=== PATIENT | male | born 1945 ===

== ENCOUNTER 2019-02-05 06:23 | Inpatient (IN) ==
[2019-02-05] MEDS ORDERED: NiCARdipine 2.5 MG/10 ML Syringe IVPB ONE (06:39)
[2019-02-05] MEDS ORDERED: Lidocaine -MPF 2% 2 ML VIAL ONE ×2 (06:49→09:32)
[2019-02-05] MEDS ORDERED: Ondansetron 4 MG/2 ML VIAL ONE (06:49)
[2019-02-05] MEDS ORDERED: *HR* Succinylcholine 200 MG/10 ML VIAL IVP ONE (06:49)
[2019-02-05] MEDS ORDERED: Dexamethasone 4 MG/ML VIAL ONE (06:49)
[2019-02-05] MEDS ORDERED: *HR* Rocuronium Bromide 50 MG/5 ML VIAL ONE (06:49)
[2019-02-05] MEDS ORDERED: Propofol 500 MG/50 ML INFUS..BTL ONE (06:51)
[2019-02-05] MEDS ORDERED: *HR* Propofol 200 MG/20 ML VIAL IVP ONE (06:52)
[2019-02-05] MEDS ORDERED: *HR* Heparin 5,000 UNIT/ML VIAL ONE ×2 (06:54→08:31)
[2019-02-05] MEDS ORDERED: *HR* FentaNYL (PF) 100 MCG/2 ML VIAL ONE ×3 (06:57→10:39)
[2019-02-05] MEDS ORDERED: *HR* Midazolam HCl 2 MG/2 ML VIAL ONE (06:57)
[2019-02-05] MEDS ORDERED: Albuterol 2.5 MG/3 ML NEBULIZER IH ONE (06:58)
[2019-02-05] MEDS ORDERED: CeFAZolin Syr 2,000MG/20 ML 2,000 MG/20 ML SYRINGE IVPB ONE (06:58)
[2019-02-05] MEDS ORDERED: EPHEDrine 50 MG/ML VIAL ONE (06:59)
[2019-02-05] MEDS ORDERED: Ringers Solution, Lactated 1,000 ML IVC SCH (07:00)
[2019-02-05] MEDS ORDERED: *HR* Phenylephrine 10 MG/ML VIAL ONE (07:01)
[2019-02-05] MEDS ORDERED: Famotidine 20 MG/2 ML VIAL IVP ONE (07:03)
[2019-02-05] MEDS ORDERED: Pregabalin 75 MG CAPSULE PO ONE (07:03)
[2019-02-05] MEDS ORDERED: Acetaminophen IV 1,000 MG/100 ML INFUS..BTL IVPB ONE (07:03)
[2019-02-05] MEDS ORDERED: traMADol 50 MG TABLET PO ONE (07:04)
--- NOTE | 2019-02-05 07:08 | Anesthesia Evaluation PreOp ---
Date of Encounter: 02/05/19 Time of Encounter: 07:00 - Past History Planned Operation: Left Fem Pop Bypass Cardiac History: HTN, Hyperlipidemia, Cardiac Surgery (CABG X4 2007), Other (PVD) Pulmonary History: Smoker, COPD CIVIL CAD DESIGNER History: Other (Cervical Fusion) Other Medical History: GERD Anesthesia History: No Prior Anesthetic Complications Alcohol Use: none Drug use: none Medications and Allergies Ascorbic Acid [Vitamin C] 500 mg PO DAILY 01/11/19 [History] Aspirin [Lo-Dose Aspirin EC] 81 mg PO DAILY 01/11/19 [History] Atorvastatin [Lipitor] 40 mg PO DAILY 01/11/19 [History] Carvedilol [Coreg] 6.25 mg PO BIDWM 01/11/19 [History] Cholecalciferol (D-3) [Vitamin D] 1,000 unit PO DAILY 01/11/19 [History] Cilostazol 50 mg PO BID 01/11/19 [History] Gabapentin [Neurontin] 300 mg PO BID 01/11/19 [History] Hydrocortisone 2.5% CREAM [Cortaid] 1 appl TP BID PRN 01/11/19 [History] Multivitamin [Daily Multiple Vitamin] 1 each PO DAILY 01/11/19 [History] Omeprazole [PriLOSEC] 20 mg PO DAILY 01/11/19 [History] Tamsulosin HCl [Flomax] 0.4 mg PO DAILY 01/11/19 [History] Tramadol HCl [Ultram] 1 - 2 mg PO Q6H PRN 01/11/19 [History] Ubidecarenone [Coq10] 50 mg PO DAILY 01/11/19 [History] Vitamin B Complex [Balanced B-50] 1 each PO DAILY 01/11/19 [History] Allergy/AdvReac Type Severity Reaction Status Date / Time Amoxicillin Allergy Itching Verified 01/11/19 06:40 vancomycin Allergy Itching Verified 01/11/19 06:40 - Meds/Allergy Pre-op Review Medications Reviewed: Yes Allergies Reviewed: Yes Beta Blockers on Current Med List: Yes (Coreg today 7350) Anesthesia Results - Labs Laboratory Tests 01/09/19 02/01/19 15:43 09:35 Hgb 14.0 Hct 42.9 Plt Count 176 Sodium 137 Potassium 4.0 BUN 22 Creatinine 1.21 - Imaging EKG: report reviewed (SR occ PVC) Anesthesia Exam O2 Sat Height 1.68 m Weight 68.492 kg O2 Sat by Pulse Oximetry 98 Vital Signs Temp Pulse Resp BP Pulse Ox 97.6 F 74 18 134/83 98 02/05/19 06:43 02/05/19 06:43 02/05/19 06:43 02/05/19 06:43 02/05/19 06:43 Height: 5'6 Weight: 150 lbs NPO (# of Hours): MN Pain Scale: 0 - HEENT Pupil (Motor): Pupils equal, EOMI Mallampati: II Oral Opening: Greater than 3 (Limited neck extention) - CIVIL CAD DESIGNER LOC: Oriented CIVIL CAD DESIGNER Motor: Normal RUE, Normal LUE, Normal RLE, Normal LLE, Normal Face CIVIL CAD DESIGNER Sensory: Normal: RUE, LUE, RLE, LLE, Face - Cardiac Rhythm: Regular Murmur: None JVD: No Carotid Bruit: No - Pulmonary Breath Sounds: bilateral Clear Respiratory Effort: Symmetrical Anesthesia Assess/Plan ASA Score: 3 (CAD HTN PVD COPD Tobacco) Level of consciousness: Cooperative, Oriented Anesthetic Plan: General Monitoring Plan: Standard Monitors, A-Line Recovery Plan: PACU (Discussed GA, agrees to proceed)
--- NOTE | 2019-02-05 07:12 | History & Physical Report ---
Date of Encounter: 02/05/19 Time of Encounter: 07:11 24 Hour HP Update - Instructions Instructions: If the History and Physical is less than 30 days old and was completed prior to A.M. admission and or procedure and has NOT been updated on calendar day of procedure please complete this update prior to performing procedure. - Update Patient reports changes in Medical Condition: No Changes in examination, assessment, or condition: No Changes in Medication: No Preop tests/diagnostics Reviewed: Yes Surgery Remains Indicated: Yes Consent for Planned Operative Procedure(s) Verified: Yes - Pre-Operative Checklist Preoperative Checklist Indicated: Yes Prophylactic Antibiotic Ordered: Yes Home Medications Include Beta Noel: Yes Beta Noel Taken Today (Day of Surgery): Yes Beta Noel Taken Yesterday (Day Prior to Surgery): Yes Is VTE Prophylaxis Indicated?: Yes
[2019-02-05] MEDS ORDERED: Heparin 1,000 UNITS/500 mL 1,000 ML ONE (07:15)
[2019-02-05] MEDS ORDERED: ceFAZolin 1,000 MG, Sodium Chloride IRRigation 1,000 ML IR ONE (07:45)
[2019-02-05] MEDS ORDERED: Lidocaine -MPF 4% 5 ML AMPUL ONE (08:06)
[2019-02-05] MEDS ORDERED: Ondansetron 4 MG/2 ML VIAL IVP ONE (08:40)
[2019-02-05] MEDS ORDERED: Morphine Sulfate 2 MG/ML SYRINGE IVP PRN (08:40)
[2019-02-05] MEDS ORDERED: *HR* OxyCODONE Immed Rel 5 MG TABLET PO PRN (08:40)
[2019-02-05] MEDS ORDERED: Dexamethasone 4 MG/ML VIAL IVP ONE (08:40)
[2019-02-05] MEDS ORDERED: *HR* Promethazine 25 MG/ML VIAL IVP PRN (08:40)
--- NOTE | 2019-02-05 08:42 | Anesthesia Procedures ---
Date of Encounter: 02/05/19 Time of Encounter: 07:00 Procedures: Anesthesia - Arterial Line Consent obtained: written consent Time out performed: Yes Sedation: Versed (mg): 2 Supplemental Oxygen via Nasal Cannula (L/min): 2 Local Anesthetic: Lidocaine 1% Size (Gauge): 20 Length (inches): 1 3/4 Technique Used: sterile prep, guide wire technique, direct puncture technique Post-Procedure: line taped into place Patient tolerated procedure: well Complications: none Site: Radial L Vitals: Vital Signs/O2 Sat/Glucose, Most Current Temp Pulse Resp BP Pulse Ox 02/05/19 08:02 64 16 143/72 96 02/05/19 07:20 97.6 F 74 18 134/83 98 02/05/19 06:43 97.6 F 74 18 134/83 98
[2019-02-05 08:50] LABS: ABG Base Excess -5 mEq/L (-2 to 3); ABG Chloride 107 mEq/L (98-107); ABG Glucose 111 mg/dL (60-95); ABG HCO3 19 mEq/L (21-27); ABG Ionized Calcium 1.12 mmol/L (1.15-1.35); ABG Oxygen Saturation 100 % (95-98); ABG PCO2 33 mmHg (35-45); ABG PH 7.37 pH Units (7.32-7.45); ABG PO2 233 mmHg (85-104); ABG TCO2 20 mEq/L (20-26)
[2019-02-05] MEDS ORDERED: Esmolol 100 MG/10 ML VIAL IVP ONE (10:48)
[2019-02-05] MEDS ORDERED: Heparin 1,000 UNITS/500 mL 500 ML ONE (11:57)
[2019-02-05] MEDS ORDERED: Protamine Sulfate 50 MG/5 ML VIAL IVP ONE (12:27)
--- NOTE | 2019-02-05 12:53 | Operative Note ---
Date of procedure: 02/05/19 Pre-op diagnosis: PAD/left leg claudication Post-op diagnosis: same Procedure: left femoral-BK popliteal bypass with 6 mm PTFE Distaflo left iliofemoral/profunda endarterectomy Complications: 0 Anesthesia: GETA Surgeon: Farhan Wynne Was there an doctor assistant present: No Estimated blood loss (cc): 150 Specimen: 0 Condition: stable Disposition: PACU Procedure in Detail: History Francisco Lauren is a 73-year-old white male who is had significant lower extremity symptoms. He is status post previous lower extremity interventions. He now has lifestyle limiting claudication. 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 He now comes to the operating room for correction of the left lower extremity vascular occlusive disease. Procedure After informed consent was obtained the patient was taken the operating room. General endotracheal anesthesia was established under arterial line pressure monitoring. The left lower extremity was then sterilely prepped and draped. A timeout protocol was observed. Dissection was initiated at the femoral level. An incision was made over the groin and dissection was carried down to the femoral artery. The common femoral artery was found to be densely calcified. There was significant calcification at the orifice of the left profunda femoris artery. The left superficial femoral artery was occluded. Dissection was made so that the vessels were controlled. Then a dissection was made of the greater saphenous vein. Unfortunately in the midportion of the thigh the greater saphenous vein was bifurcated and was too small to use and so therefore a synthetic conduit as necessary. Then attention was directed to the [id number] popliteal artery. An incision was made on the medial aspect of the calf. Controls obtained of the [id number]-uus-[id number] popliteal artery which was soft to touch the relatively small diameter. A subsartorial tunnel was then performed. The 6 mm PTFE Distaflo graft was passed through the tunnel. Heparin was given in a dose of 5000 units. After a three-minute delay the sddmm-niv-ubkk popliteal artery was clamped and opened with 11 blade knife and Pennington scissors. Using the fluted end of the graft the end of the graft to side of artery anastomosis was created. A 6-0 Prolene suture was used for this anastomosis. The graft itself was unclamped and the clamps on the [place] vessels were released. Attention was then directed to the left groin. Because of the calcific nature of the disease a formal endarterectomy was necessary. A longitudinal arteriotomy was made for the length of the common femoral artery. An endarterectomy was then performed of the left iliofemoral segment. The superficial femoral artery was occluded and no attempt at endarterectomy was made of this vessel. In addition the orifice of the profunda femoris artery was widely endarterectomized as the result of our large protrusion of the plaque into this region. The synthetic graft was then beveled so that the proximal with serve as a patch over the area of the endarterectomized iliofemoral segment. This was sewn into position using 2 6-0 Prolene sutures. The small space open the area was flushed retrograde and antegrade. The graft was not opened. Pulsatile flow was restored into the left tibial system. Doppler signals were identified over the posterior tibial and dorsalis pedis arteries. The incisions were then irrigated and hemostasis achieved. The wounds were then closed in layers using absorbable suture. Marcaine was infiltrated into the wound edges. Dry sterile dressings were applied. The patient was extubated in the operating room. He was then taken from the operating room to the recovery room in stable condition.
--- NOTE | 2019-02-05 14:03 | Anesthesia Evaluation Post Op ---
Date of Encounter: 02/05/19 Time of Encounter: 14:03 - Vital Signs Vital Signs: Vital Signs/O2 Sat/Glucose, Most Current Temp Pulse Resp BP Pulse Ox 02/05/19 13:54 97.7 F 80 15 122/64 96 02/05/19 13:44 84 11 128/67 97 02/05/19 13:34 80 14 125/86 97 02/05/19 13:24 97.9 F 83 16 131/74 100 - Lungs Lungs: Clear Ascult./Percussion - Airway Airway: Non-obstructed - Cardiovascular Regular Rate - Mental Status Mental Status: Alert & Oriented, Answers Appropriately - Pain Pain Scale: 2 Pain Scale used: Numeric (1 - 10) - Nausea Vomiting Nausea Vomiting: Not Present - Hydration Hydration: Ice chips, Mcallister catheter - Discharge PostOp Status: Transfer Patient to floor
[2019-02-05] MEDS ORDERED: *HR* Labetalol 20 MG/4 ML SYRINGE IVP PRN (14:46)
[2019-02-05] MEDS ORDERED: Naloxone 0.4 MG/ML INJ IVP PRN (14:46)
[2019-02-05] MEDS ORDERED: Ondansetron 4 MG/2 ML VIAL IVP PRN (14:46)
[2019-02-05] MEDS: traMADol 50 MG TABLET PO PRN (18:59)
[2019-02-05] MEDS: Gabapentin 300 MG CAPSULE PO SCH (20:21)
[2019-02-06 05:20] LABS: Basophils % 0.1 %; Hematocrit 33.3 % (37.5-50.1); Hemoglobin 11.4 g/dL (12.9-16.9); Immature Granulocytes % 0.6 % (0-4); Lymphocytes # 1.3 K/mcL (0.6-4.6); Lymphocytes % 8.7 %; Mean Corpuscular HGB Conc 34.2 g/dL (31.6-35.5); Mean Corpuscular Hemoglobin 31.6 pg (28.0-33.3); Mean Corpuscular Volume 92.2 fL (83.0-100.0); Mean Platelet Volume 11.4 fL (9.4-12.4); Monocytes # 0.9 K/mcL (0.0-1.3); Monocytes % 5.7 %; Neutrophils # 12.6 K/mcL (1.6-8.9); Platelet Count 126 K/mcL (140-400); Red Blood Count 3.61 M/mcL (4.19-5.50); Red Cell Distribution Width 13.6 % (11.5-14.5); Segmented Neutrophils % 84.9 %; White Blood Count 14.8 K/mcL (4.3-11.1)
[2019-02-06 05:39] LABS: BUN/Creatinine Ratio 15 (6-26); Blood Urea Nitrogen 17 mg/dL (8-23); Calcium 8.8 mg/dL (8.6-10.3); Carbon Dioxide 24 mEq/L (23-29); Chloride 108 mEq/L (98-107); Glucose 115 mg/dL (70-105); Osmolality,Calculated 290 (280-300); Potassium 3.8 mEq/L (3.5-5.1); Sodium 139 mEq/L (136-145); eGFR For African Americans > 60 (> 60); eGFR For Non-African Americans > 60 (> 60)
[2019-02-06] MEDS: Cholecalciferol (D-3) 1,000 UNIT TABLET PO SCH (08:14)
[2019-02-06] MEDS: Multivit/Ca/Min/Fe/FA 1 TAB TABLET PO SCH (08:14)
[2019-02-06] MEDS: Aspirin Enteric Coated 81 MG Tablet PO SCH (08:14)
[2019-02-06] MEDS: Ascorbic Acid 500 MG TABLET PO SCH (08:14)
[2019-02-06] MEDS: Vitamin B Complex/Vit C/Vit E 1 EACH TABLET PO SCH (08:14)
[2019-02-06] MEDS: Gabapentin 300 MG CAPSULE PO SCH ×2 (08:14→20:44)
[2019-02-06] MEDS ORDERED: (Ubidecarenone [Coq10] 50 MG) PO SCH (09:00)
--- NOTE | 2019-02-06 17:19 | Vascular/[facility] Progress Note ---
Date of Encounter: 02/06/19 Time of Encounter: 17:17 - Assessment and plan (1) PAD (peripheral artery disease) Current Visit: Yes Status: Chronic Patent left lower extremity bypass graft and endarterectomy. Increased and improved perfusion to left foot postoperatively. - Subjective Interval history: Patient is postoperative day #1 following a left femoral to below-knee popliteal artery bypass graft with extensive left iliofemoral endarterectomy. Patient has no specific complaints except for pain associated with his surgical incisions. Patient has been up in the room walking and was evaluated by physical therapy and occupational therapy earlier today. Patient has also been seen by social service in anticipation for transfer to extended care facility for further postoperative rehabilitation. Vital Signs, Last 4 Hours Temp Pulse Resp BP Pulse Ox 02/06/19 16:45 98.4 F 74 18 136/70 96 02/06/19 16:42 98.4 F 74 18 136/70 96 - Physical Examination General: Present: Conversant, No Apparent Distress HEENT: Present: Atraumatic Neck: Absent: JVD Cardiac: Present: Reg Rate and Rhythm Vascular: Present: Color/Temperature (Left foot is warm. Doppler signals are present.), Surgical incisions (Patient has dressings on his left lower extremity incisions. The Dressing was changed earlier today due to oozing but this stopped.) Skin: Present: No rashes noted on visualized skin Results 02/06/19 04:15 02/06/19 04:15 Lab Results, Last 24 hours 02/06/19 02/06/19 04:15 04:15 WBC 14.8 H Hgb 11.4 L Hct 33.3 L Plt Count 126 L Sodium 139 Potassium 3.8 Chloride 108 H Carbon Dioxide 24 BUN 17 Creatinine 1.10 Glucose 115 H Calcium 8.8 Consult Discharge Plan - Plan Referrals: Keke Fernandez CNP [Primary Care Provider] - Farhan Wynne MD [Partnered Physician] - 02/27/19 9:40 am
--- NOTE | 2019-02-06 17:20 | Physician Discharge Referral ---
ExtendedCare Referral Info Transfer To: Extended-care facility Provider in Charge: Dr Wynne Provider in Charge after Transfer: PCP Institutional Level of Care: Skilled - Diagnosis (1) PAD (peripheral artery disease) Priority: Primary Status: Chronic (2) Hypertension Priority: Secondary Status: Chronic (3) Hyperlipidemia Priority: Secondary Status: Chronic (4) Status post aorto-coronary artery bypass graft Priority: Secondary Status: Chronic Expected Duration of Placement: -1-2 weeks Prognosis: Good Aware of Diagnosis: Patient Aware of Prognosis: Patient - Transfer Medications Home Medications: Ascorbic Acid [Vitamin C] 500 mg PO DAILY 01/11/19 [History] Aspirin [Lo-Dose Aspirin EC] 81 mg PO DAILY 01/11/19 [History] Atorvastatin [Lipitor] 40 mg PO HS 01/11/19 [History] Carvedilol [Coreg] 6.25 mg PO BIDWM 01/11/19 [History] Cholecalciferol (D-3) [Vitamin D] 1,000 unit PO DAILY 01/11/19 [History] Cilostazol 50 mg PO BID 01/11/19 [History] Multivitamin [Daily Multiple Vitamin] 1 each PO DAILY 01/11/19 [History] Omeprazole [PriLOSEC] 20 mg PO DAILY 01/11/19 [History] Tamsulosin HCl [Flomax] 0.4 mg PO DAILY 01/11/19 [History] Tramadol HCl [Ultram] 50 mg PO Q6H PRN 01/11/19 [History] Ubidecarenone [Coq10] 50 mg PO DAILY 01/11/19 [History] Vitamin B Complex [Balanced B-50] 1 each PO DAILY 01/11/19 [History] Gabapentin 600 mg PO BID 02/05/19 [History] Allergies/Adverse Reactions: Allergy/AdvReac Type Severity Reaction Status Date / Time vancomycin Allergy See Verified 02/05/19 07:33 Comments Amoxicillin AdvReac Nausea Verified 02/05/19 07:33 - Respiratory Orders Smoking Cessation: Smoking cessation has been advised. For more information, call the [place] Tobacco Quit Line at 2-856-QZDN-NOW. - Ancillary Orders May use pressure relief devices daily prn, May go on DEBBIE w/family/respon democrat w/meds at nurse discretion PRN, May have alcoholic beverages, May consult with Dentist, Photoengraving Retoucher, Garage Supervisor PRN - Advance Directives Code Status: Full Code - Rehabiliation Orders Rehab Orders: ROM Exercises, Evaluation for Physical Therapy, Evaluation for Occupational Therapy - Treatments Skin tear care topically daily PRN per policy - Diet Orders Regular CERTIFICATION: I certify that the transfer of the above named patient to an Extended Care Facility is necessary for the continuing treatment of the diagnosis listed. The above information is true and accurate reflection of patient's current condition. Confidential - Redisclosure prohibited without a patient's written consent.
--- NOTE | 2019-02-06 17:25 | Discharge Summary ---
Orders not resulted at time of discharge: Pending orders 02/01/19 09:42 Red Blood Cells [BBK] Routine Date of Encounter: 02/08/19 Time of Encounter: 10:15 - Discharge Diagnosis (1) PAD (peripheral artery disease) Priority: Primary Status: Chronic (2) Hypertension Priority: Secondary Status: Chronic Qualifiers: Hypertension type: essential hypertension Qualified Code(s): I10 - Essential (primary) hypertension (3) Hyperlipidemia Priority: Secondary Status: Chronic Qualifiers: Hyperlipidemia type: unspecified Qualified Code(s): E78.5 - Hyperlipidemia, unspecified (4) Status post aorto-coronary artery bypass graft Priority: Secondary Status: Chronic - Hospital Course Hospital course: Mr. Lauren is a 73 year old male With known history of severe bilateral lower extremity vascular occlusive disease. The patient was admitted for reconstruction for the left lower extremity. He has known right lower extremity disease as well. He underwent an extensive iliofemoral and profunda femoris artery endarterectomy. Patient also underwent a left femoral to below-knee popliteal artery bypass graft 6 mm PTFE distal flow. The patient had an uneventful postoperative recovery. He was medically cleared for transfer on postoperative day #1. In order to facilitate arrangements the patient was here in the hospital until postoperative day #3. The operation and wound care and other issues were discussed in full with the patient prior to discharge. All questions were answered. The patient will continue his usual medications at the extended care facility and continue those when he is finally discharged back to home. - Time Spent with Patient Total time spent providing and/or coordinating discharge services: - Discharge Medications Prescriptions: No Action Vitamin B Complex [Balanced B-50] 1 each PO DAILY Cholecalciferol (D-3) [Vitamin D] 1,000 unit PO DAILY Ascorbic Acid [Vitamin C] 500 mg PO DAILY Tramadol HCl [Ultram] 50 mg PO Q6H PRN PRN Reason: Pain Omeprazole [PriLOSEC] 20 mg PO DAILY Multivitamin [Daily Multiple Vitamin] 1 each PO DAILY Atorvastatin [Lipitor] 40 mg PO HS Ubidecarenone [Coq10] 50 mg PO DAILY Tamsulosin HCl [Flomax] 0.4 mg PO DAILY Cilostazol 50 mg PO BID Carvedilol [Coreg] 6.25 mg PO BIDWM Aspirin [Lo-Dose Aspirin EC] 81 mg PO DAILY Gabapentin 600 mg PO BID Home Medications: Ascorbic Acid [Vitamin C] 500 mg PO DAILY 01/11/19 [History] Aspirin [Lo-Dose Aspirin EC] 81 mg PO DAILY 01/11/19 [History] Atorvastatin [Lipitor] 40 mg PO HS 01/11/19 [History] Carvedilol [Coreg] 6.25 mg PO BIDWM 01/11/19 [History] Cholecalciferol (D-3) [Vitamin D] 1,000 unit PO DAILY 01/11/19 [History] Cilostazol 50 mg PO BID 01/11/19 [History] Multivitamin [Daily Multiple Vitamin] 1 each PO DAILY 01/11/19 [History] Omeprazole [PriLOSEC] 20 mg PO DAILY 01/11/19 [History] Tamsulosin HCl [Flomax] 0.4 mg PO DAILY 01/11/19 [History] Tramadol HCl [Ultram] 50 mg PO Q6H PRN 01/11/19 [History] Ubidecarenone [Coq10] 50 mg PO DAILY 01/11/19 [History] Vitamin B Complex [Balanced B-50] 1 each PO DAILY 01/11/19 [History] Gabapentin 600 mg PO BID 02/05/19 [History] Allergies/Adverse Reactions: Allergy/AdvReac Type Severity Reaction Status Date / Time vancomycin Allergy See Verified 02/05/19 07:33 Comments Amoxicillin AdvReac Nausea Verified 02/05/19 07:33 Date of admission: 02/05/19 14:26 Primary care physician: Keke Fernandez CNP Consults: 02/05/19 14:46 Consult to Occupational Therapy [CONS] Routine Comment: Evaluate, develop and implement POC Reason for Consult: PAD--s/p left LE bypass--Pt to ECF upon discharge Does patient have active BEDREST order?: No Is patient medically & hemodynamically stable?: Yes Patient assessed for mobility or mobilized this visit?: No Consult to Physical Therapy [CONS] Routine Comment: Evaluate, develop and implement POC Reason for Consult: PAD--s/p left LE bypass--Pt to ECF upon discharge Does patient have active BEDREST order?: No Is patient medically & hemodynamically stable?: Yes Patient assessed for mobility or mobilized this visit?: No Consult to Butcher [employer] [CONS] Routine Reason for SW Consult: Pt to ECF/Rehab upon discharge Procedure(s) Performed: Left femoral to below-knee popliteal artery bypass graft with 6 mm PTFE Distaflo Left iliofemoral and profunda femoris endarterectomy Discharging clinician: Farhan Wynne Anticipated date of discharge: 02/08/19 Exam Vital Signs, Last 4 Hours Temp Pulse Resp BP Pulse Ox 02/06/19 16:45 98.4 F 74 18 136/70 96 02/06/19 16:42 98.4 F 74 18 136/70 96 General: Present: Conversant, No Apparent Distress HEENT: Present: Atraumatic Neuro: Present: Alert and responsive Abdomen: Present: Soft Vascular: Present: Color/Temperature (Left foot is warm and pink.), Other (Biphasic to triphasic Doppler signals over the left dorsalis pedis and posterior tibial arteries.). Absent: Cyanosis, Edema - Patient Status Disposition: Transfer Inpatient Rehab Fac Condition: Fair Functional capacity at discharge: uses cane/walker Overall status at discharge: patient is progressing back to baseline - Discharge Instructions Follow Up With: Keke Fernandez CNP [Primary Care Provider] - 02/14/19 10:00 am Farhan Wynne MD [Partnered Physician] - 02/27/19 9:40 am Additional Instructions: Keep surgical incisions dry for total 5 days following surgery. Using incentive spirometer for 2 weeks following surgery 10 times an hour while awake and then discard incentive spirometer. Resume usual home medications. Advanced physical activities as recommended by physical and occupational therapy. - Diet and Activity Activity: as per physical therapy Diet: low fat, low cholesterol
[2019-02-07] MEDS: traMADol 50 MG TABLET PO PRN ×3 (05:45→23:13)
[2019-02-07] MEDS: Cholecalciferol (D-3) 1,000 UNIT TABLET PO SCH (07:51)
[2019-02-07] MEDS: Ascorbic Acid 500 MG TABLET PO SCH (07:51)
[2019-02-07] MEDS: Vitamin B Complex/Vit C/Vit E 1 EACH TABLET PO SCH (07:51)
[2019-02-07] MEDS: Multivit/Ca/Min/Fe/FA 1 TAB TABLET PO SCH (07:51)
[2019-02-07] MEDS: Aspirin Enteric Coated 81 MG Tablet PO SCH (07:51)
[2019-02-07] MEDS: Gabapentin 300 MG CAPSULE PO SCH ×2 (07:52→20:00)
--- NOTE | 2019-02-07 11:59 | Vascular/[facility] Progress Note ---
Date of Encounter: 02/07/19 Time of Encounter: 11:57 - Assessment and plan (1) PAD (peripheral artery disease) Current Visit: Yes Status: Chronic Patent left lower extremity bypass graft and endarterectomy. Increased and improved perfusion to left foot postoperatively. Patient cleared medically for transfer to extended care facility. (2) Hypertension Current Visit: Yes Status: Chronic History of chronic hypertension. Qualifiers: Hypertension type: essential hypertension Qualified Code(s): I10 - Essential (primary) hypertension (3) Hyperlipidemia Current Visit: Yes Status: Chronic Qualifiers: Hyperlipidemia type: unspecified Qualified Code(s): E78.5 - Hyperlipidemia, unspecified (4) Status post aorto-coronary artery bypass graft Current Visit: Yes Status: Chronic - Subjective Interval history: Patient is postoperative day #2 following a left femoral to below-knee popliteal artery bypass graft with extensive left iliofemoral endarterectomy. Patient has no specific complaints except for pain associated with his surgical incisions. Patient has been up in the room walking and was evaluated by physical therapy and occupational therapy earlier today. Patient has also been seen by social service in anticipation for transfer to extended care facility for further postoperative rehabilitation. The patient is medically cleared for transfer and are now awaiting bed availability. - Physical Examination General: Present: Conversant, No Apparent Distress HEENT: Present: Atraumatic Vascular: Present: Surgical incisions (Surgical incisions are clean and dry.), Other (Left foot is warm and pink. The temperature and color of the left foot is improved from yesterday. Doppler signals are biphasic to triphasic over the dorsalis pedis and posterior tibial arteries.) Results 02/06/19 04:15 02/06/19 04:15 Consult Discharge Plan - Plan Additional Instructions: Keep surgical incisions dry for total 5 days following surgery. Using incentive spirometer for 2 weeks following surgery 10 times an hour while awake and then discard incentive spirometer. Resume usual home medications. Referrals: Keke Fernandez CNP [Primary Care Provider] - Farhan Wynne MD [Partnered Physician] - 02/27/19 9:40 am
[2019-02-08 06:44] VITALS: BP 106/60
[2019-02-08] MEDS: Multivit/Ca/Min/Fe/FA 1 TAB TABLET PO SCH (07:47)
[2019-02-08] MEDS: Vitamin B Complex/Vit C/Vit E 1 EACH TABLET PO SCH (07:47)
[2019-02-08] MEDS: Cholecalciferol (D-3) 1,000 UNIT TABLET PO SCH (07:47)
[2019-02-08] MEDS: Gabapentin 300 MG CAPSULE PO SCH (07:47)
[2019-02-08] MEDS: Ascorbic Acid 500 MG TABLET PO SCH (07:48)
[2019-02-08] MEDS: Aspirin Enteric Coated 81 MG Tablet PO SCH (07:48)
--- NOTE | 2019-02-08 10:15 | Vascular/[facility] Progress Note ---
Date of Encounter: 02/08/19 Time of Encounter: 10:13 - Assessment and plan (1) PAD (peripheral artery disease) Current Visit: Yes Status: Chronic Patent left lower extremity bypass graft and endarterectomy. Increased and improved perfusion to left foot postoperatively. Patient cleared medically for transfer to extended care facility. (2) Hypertension Current Visit: Yes Status: Chronic History of chronic hypertension. Qualifiers: Hypertension type: essential hypertension Qualified Code(s): I10 - Essential (primary) hypertension (3) Hyperlipidemia Current Visit: Yes Status: Chronic Qualifiers: Hyperlipidemia type: unspecified Qualified Code(s): E78.5 - Hyperlipidemia, unspecified (4) Status post aorto-coronary artery bypass graft Current Visit: Yes Status: Chronic - Subjective Interval history: Patient is postoperative day #3 following a left femoral to below-knee popliteal artery bypass graft with extensive left iliofemoral endarterectomy. Patient has no specific complaints except for pain associated with his surgical incisions. Patient has been up in the room walking and was evaluated by physical therapy and occupational therapy earlier today. Patient has also been seen by social service in anticipation for transfer to extended care facility for further postoperative rehabilitation. The patient medically cleared for transfer. Vital Signs, Last 4 Hours Temp Pulse Resp BP Pulse Ox 02/08/19 07:56 96 02/08/19 06:42 98.5 F 83 17 106/60 93 - Physical Examination General: Present: Conversant, No Apparent Distress Neuro: Present: Alert and responsive Vascular: Present: Color/Temperature (Left foot is warm and pink), Other (Patient has biphasic to triphasic Doppler signals at left ankle). Absent: Cyanosis, Edema Results 02/06/19 04:15 02/06/19 04:15 Consult Discharge Plan - Plan Additional Instructions: Keep surgical incisions dry for total 5 days following surgery. Using incentive spirometer for 2 weeks following surgery 10 times an hour while awake and then discard incentive spirometer. Resume usual home medications. Referrals: Keke Fernandez CNP [Primary Care Provider] - 02/14/19 10:00 am Farhan Wynne MD [Partnered Physician] - 02/27/19 9:40 am
== END 2019-02-08 13:37 | DRG 254 ==
LOC: SAMDAY 06:23 → 2NNU 14:26
PROVIDERS: ADMIT Surgery Vascular Surgery; ATTEND Surgery Vascular Surgery

== ENCOUNTER 2019-03-26 09:53 | Inpatient (IN) ==
[2019-03-26] MEDS ORDERED: Lidocaine -MPF 2% 2 ML VIAL ONE ×2 (10:06→10:59)
[2019-03-26] MEDS ORDERED: *HR* Rocuronium Bromide 50 MG/5 ML VIAL ONE (10:06)
[2019-03-26] MEDS ORDERED: *HR* Propofol 200 MG/20 ML VIAL IVP ONE (10:06)
[2019-03-26] MEDS ORDERED: *HR* FentaNYL (PF) 100 MCG/2 ML VIAL ONE (10:06)
[2019-03-26] MEDS ORDERED: Heparin 1,000 UNITS/500 mL 500 ML ONE (10:09)
[2019-03-26] MEDS ORDERED: *HR* Heparin 5,000 UNIT/ML VIAL ONE ×2 (10:09→17:06)
[2019-03-26] MEDS ORDERED: CeFAZolin Syr 2,000MG/20 ML 2,000 MG/20 ML SYRINGE IVPB ONE (10:24)
[2019-03-26] MEDS ORDERED: Ringers Solution, Lactated 1,000 ML IVC SCH (10:30)
[2019-03-26] MEDS ORDERED: Albuterol 2.5 MG/3 ML NEBULIZER IH ONE ×2 (10:38→11:37)
--- NOTE | 2019-03-26 11:24 | History & Physical Report ---
Date of Encounter: 03/26/19 Time of Encounter: 11:23 24 Hour HP Update - Instructions Instructions: If the History and Physical is less than 30 days old and was completed prior to A.M. admission and or procedure and has NOT been updated on calendar day of procedure please complete this update prior to performing procedure. - Update Patient reports changes in Medical Condition: No Changes in examination, assessment, or condition: No Changes in Medication: No Preop tests/diagnostics Reviewed: Yes Surgery Remains Indicated: Yes Consent for Planned Operative Procedure(s) Verified: Yes - Pre-Operative Checklist Preoperative Checklist Indicated: Yes Prophylactic Antibiotic Ordered: Yes Home Medications Include Beta Noel: Yes Beta Noel Taken Today (Day of Surgery): Yes Beta Noel Taken Yesterday (Day Prior to Surgery): Yes Is VTE Prophylaxis Indicated?: Yes
[2019-03-26] MEDS ORDERED: Heparin 1,000 UNITS/500 mL 1,000 ML ONE (11:34)
--- NOTE | 2019-03-26 11:34 | Anesthesia Evaluation PreOp ---
Date of Encounter: 03/26/19 Time of Encounter: 11:32 - Past History Planned Operation: RIGHT FEM-POP THROMBECTOMY Cardiac History: HTN, Hyperlipidemia, Arrhythmia (OCC NSVT), Cardiac Surgery (2010), Other (NORMAL EF & STRESS TEST 2017, PAD) Pulmonary History: Smoker PRECISION INSPECTOR History: Denies Any Significant HX Other Medical History: GERD (CONTROLLED) Alcohol Use: none Drug use: none Medications and Allergies Ascorbic Acid [Vitamin C] 500 mg PO QAM 01/11/19 [History] Aspirin [Lo-Dose Aspirin EC] 81 mg PO QAM 01/11/19 [History] Atorvastatin [Lipitor] 40 mg PO QAM 01/11/19 [History] Carvedilol [Coreg] 6.25 mg PO BIDWM 01/11/19 [History] Cholecalciferol (D-3) [Vitamin D] 1,000 unit PO QAM 01/11/19 [History] Cilostazol 50 mg PO BID 01/11/19 [History] Multivitamin [Daily Multiple Vitamin] 1 each PO QAM 01/11/19 [History] Omeprazole [PriLOSEC] 20 mg PO QAM 01/11/19 [History] Tamsulosin HCl [Flomax] 0.4 mg PO QPM 01/11/19 [History] Tramadol HCl [Ultram] 100 mg PO TID PRN 01/11/19 [History] Ubidecarenone [Coq10] 50 mg PO DAILY 01/11/19 [History] Vitamin B Complex [Balanced B-50] 1 each PO QAM 01/11/19 [History] Gabapentin 600 mg PO BID 02/05/19 [History] cephALEXin [Keflex] 500 mg PO QID 03/26/19 [History] Allergy/AdvReac Type Severity Reaction Status Date / Time vancomycin Allergy See Verified 03/26/19 10:15 Comments Amoxicillin AdvReac Nausea Verified 03/26/19 10:15 - Meds/Allergy Pre-op Review Medications Reviewed: Yes Allergies Reviewed: Yes Beta Blockers on Current Med List: Yes If Beta Blockers taken, Date/Time (Last Dose taken): AM Anesthesia Exam Vital Signs/O2 Sat, Most Current Temp Pulse Resp BP Pulse Ox 97.9 F 66 18 127/74 99 03/26/19 10:31 03/26/19 10:31 03/26/19 10:31 03/26/19 10:31 03/26/19 10:31 Weight: 64 KG - BMI 23 NPO (# of Hours): 8 - HEENT Mallampati: I Teeth: Edentulous - Cardiac Rhythm: Regular - Pulmonary Breath Sounds: bilateral Clear Anesthesia Assess/Plan ASA Score: 3 Anesthetic Plan: General Monitoring Plan: Standard Monitors Recovery Plan: PACU
[2019-03-26] MEDS ORDERED: Acetaminophen IV 1,000 MG/100 ML INFUS..BTL IVPB ONE (11:37)
[2019-03-26] MEDS ORDERED: *HR* OxyCODONE Immed Rel 5 MG TABLET PO PRN (11:37)
[2019-03-26] MEDS ORDERED: *HR* HYDROmorphone (PF) 1 MG/ML SYRINGE IVP PRN (11:37)
[2019-03-26] MEDS ORDERED: Ondansetron 4 MG/2 ML VIAL IVP ONE (11:37)
[2019-03-26] MEDS ORDERED: *HR* Labetalol 20 MG/4 ML SYRINGE IVP PRN ×2 (11:37→19:54)
[2019-03-26] MEDS ORDERED: *HR* Promethazine 25 MG/ML VIAL IVP PRN (11:37)
[2019-03-26] MEDS ORDERED: Ketorolac 30 MG/ML VIAL IVP ONE (11:37)
[2019-03-26] MEDS ORDERED: ceFAZolin 1,000 MG, Sodium Chloride IRRigation 1,000 ML IR ONE (11:50)
[2019-03-26] MEDS ORDERED: *HR* Midazolam HCl 2 MG/2 ML VIAL ONE (12:19)
[2019-03-26 16:04] LABS: ABG Base Excess -4 mEq/L (-2 to 3); ABG Chloride 109 mEq/L (98-107); ABG Glucose 114 mg/dL (60-95); ABG HCO3 22 mEq/L (21-27); ABG Ionized Calcium 1.25 mmol/L (1.15-1.35); ABG Oxygen Saturation 99 % (95-98); ABG PCO2 40 mmHg (35-45); ABG PH 7.34 pH Units (7.32-7.45); ABG PO2 162 mmHg (85-104); ABG TCO2 23 mEq/L (20-26)
[2019-03-26] MEDS ORDERED: Sodium Bicarbonate 50 MEQ/50 ML VIAL ONE (16:19)
--- NOTE | 2019-03-26 17:51 | Operative Note ---
Date of procedure: 03/26/19 Pre-op diagnosis: recurrent ischemia of left leg Post-op diagnosis: same Procedure: thrombectomy of left femoral-popliteal bypass graft revision of proximal anastomosis with patch angioplasty Complications: 0 Anesthesia: GETA Surgeon: Farhan Wynne Was there an title i assistant present: No Estimated blood loss (cc): 350 Specimen: 0 Condition: stable Disposition: PACU Procedure in Detail: History Mr. Lauren is a 73-year-old white male who has undergone a left femoral- popliteal bypass graft and popliteal endarterectomy approximately 2 months ago. He was found on follow-up exam to have occluded his graft. Recurrent symptoms. He has a past history of severe bilateral lower extremity vascular disease and he has had previous interventions at outside hospitals. He comes back to the operating room to thrombectomize his left lower extremity bypass. Procedure After informed consent was obtained the patient was taken to the operating room. General endotracheal anesthesia was established under arterial line pressure m onitoring. The left lower extremity was sterilely prepped and draped. A timeout protocol was observed. An incision was made at the [id number] popliteal site from his previous operation. Dissection was carried down into the deep arterial space. The patient had marked inflammation was difficult to identify the graft. Once that was finally accomplished controls obtained. Then this led to an extensive and very difficult dissection due to bleeding and oozing in the depth of exposure of the [place] vessels. After this was finally accomplished the patient was given heparin and the graft was open. Using a 3 and 4-[place] Lul catheter the graft was thrombectomized. Despite multiple attempts to graft catheter would not pass into the proximal anastomosis. Therefore a second incision was made at the groin. The second incision was made through the previous surgical site. Dissection was carried down to the femoral artery area. The graft was encountered and opened. Despite passing the catheter multiple times this would not connect to the open vessel below the knee. Therefore further dissection revealed that the patient had a second graft. This was opened and and then the graft was thrombectomized excellent flow was noted through the graft with heparinized saline. Evaluation the graft proximally indicated that a patch angioplasty was necessary due to the orientation of the grafts and the opening. Therefore aborted pericardial patch was placed using 6-0 Prolene suture. With this patch angioplasty the anastomosis to the graft was widened. With this done. Flow was then checked and was demonstrated into the knee region. The graft was then flushed. The graftotomy at the [id number] popliteal area was then closed with 6-0 Prolene. After appropriate backbleeding and flushing this was opened in an pulsatile flow was restored into the left leg by removing all clamps. Doppler signals were identified over the posterior tibial and peroneal arteries at the left ankle. The wounds were then closed. The wounds were infiltrated with Marcaine. Absorbable sutures were used for the closure. Dry sterile dressings were then applied. The patient was extubated in the operating room. He was taken from the operating room to the recovery room in stable condition. The operation was marked by very difficult dissections both proximally and distally due to the scar tissue and the previous operation led to marked inflammation.
[2019-03-26] MEDS ORDERED: Neostigmine Methylsulfate 3 MG/3 ML SYRINGE ONE (17:56)
--- NOTE | 2019-03-26 19:12 | Anesthesia Evaluation Post Op ---
Date of Encounter: 03/26/19 Time of Encounter: 19:05 - Vital Signs Vital Signs: Vital Signs/O2 Sat/Glucose, Most Current Temp Pulse Resp BP Pulse Ox 03/26/19 18:57 97.8 F 51 12 106/42 99 03/26/19 18:47 97.8 F 51 15 142/61 96 03/26/19 18:37 54 14 136/53 98 03/26/19 18:27 61 14 114/58 98 03/26/19 18:17 97.9 F 72 16 115/66 99 - Lungs Lungs: Clear Ascult./Percussion - Airway Airway: Non-obstructed - Cardiovascular Regular Rate - Mental Status Mental Status: Alert & Oriented, Answers Appropriately - Pain Pain Scale: 0 - Nausea Vomiting Nausea Vomiting: Not Present - Hydration Hydration: Ice chips - Discharge PostOp Status: Transfer Patient to floor
[2019-03-26] MEDS ORDERED: traMADol 50 MG TABLET PO PRN (19:54)
[2019-03-26] MEDS ORDERED: Naloxone 0.4 MG/ML INJ IVP PRN (19:54)
[2019-03-26] MEDS: Gabapentin 300 MG CAPSULE PO SCH (21:06)
[2019-03-27] MEDS: *HR* HYDROcodone/Acet 5/325 mg TABLET PO PRN ×2 (04:19→13:05)
[2019-03-27 04:32] LABS: Basophils % 0.3 %; Hematocrit 25.7 % (37.5-50.1); Immature Granulocytes % 0.1 % (0-4); Lymphocytes # 1.7 K/mcL (0.6-4.6); Lymphocytes % 23.8 %; Mean Corpuscular HGB Conc 33.1 g/dL (31.6-35.5); Mean Corpuscular Hemoglobin 29.6 pg (28.0-33.3); Mean Corpuscular Volume 89.5 fL (83.0-100.0); Mean Platelet Volume 10.6 fL (9.4-12.4); Monocytes # 0.6 K/mcL (0.0-1.3); Monocytes % 8.4 %; Neutrophils # 4.7 K/mcL (1.6-8.9); Platelet Count 131 K/mcL (140-400); Red Blood Count 2.87 M/mcL (4.19-5.50); Red Cell Distribution Width 13.1 % (11.5-14.5); Segmented Neutrophils % 67.4 %
[2019-03-27 04:33] LABS: Hemoglobin 8.5 g/dL (12.9-16.9)
[2019-03-27 04:52] LABS: BUN/Creatinine Ratio 14 (6-26); Blood Urea Nitrogen 15 mg/dL (8-23); Calcium 8.5 mg/dL (8.6-10.3); Carbon Dioxide 23 mEq/L (23-29); Chloride 108 mEq/L (98-107); Glucose 81 mg/dL (70-105); Osmolality,Calculated 292 (280-300); Potassium 3.7 mEq/L (3.5-5.1); Sodium 141 mEq/L (136-145); eGFR For African Americans > 60 (> 60); eGFR For Non-African Americans > 60 (> 60)
[2019-03-27] MEDS: Gabapentin 300 MG CAPSULE PO SCH (08:07)
[2019-03-27] MEDS ORDERED: NON-FORMULARY MEDICATION 1 EACH EACH (Ubidecarenone [Coq10] 50 MG) PO SCH (09:00)
[2019-03-27] MEDS ORDERED: Ascorbic Acid 500 MG TABLET PO SCH (09:00)
[2019-03-27] MEDS ORDERED: Cholecalciferol (D-3) 1,000 UNIT (25MCG) TABLET PO SCH (09:00)
[2019-03-27] MEDS ORDERED: Vitamin B Complex/Vit C/Vit E 1 EACH TABLET PO SCH (09:00)
[2019-03-27] MEDS ORDERED: Multivit/Ca/Min/Fe/FA 1 TAB TABLET PO SCH (09:00)
[2019-03-27] MEDS ORDERED: Aspirin Enteric Coated 81 MG Tablet PO SCH (09:00)
[2019-03-27] MEDS ORDERED: *HR* Propofol 200 MG/20 ML VIAL IVP ONE (17:19)
[2019-03-27] MEDS ORDERED: Ondansetron 4 MG/2 ML VIAL ONE ×2 (17:19)
[2019-03-27] MEDS ORDERED: *HR* Succinylcholine 200 MG/10 ML VIAL IVP ONE ×2 (17:19→19:13)
[2019-03-27] MEDS ORDERED: Neostigmine Methylsulfate 3 MG/3 ML SYRINGE ONE ×2 (17:19)
[2019-03-27] MEDS ORDERED: Lidocaine -MPF 2% 2 ML VIAL ONE ×2 (17:19→19:13)
[2019-03-27] MEDS ORDERED: Ketorolac 30 MG/ML VIAL ONE ×2 (17:19)
--- NOTE | 2019-03-27 17:22 | Anesthesia Progress Note ---
Date of Encounter: 03/27/19 Time of Encounter: 17:20 Anesthesia Note - Note Note: 03/27/19 17:21 Patient developed thrombus...will proceed with GA
[2019-03-27] MEDS ORDERED: Heparin 1,000 UNITS/500 mL 1,000 ML ONE (17:27)
--- NOTE | 2019-03-27 17:27 | Vascular/[facility] Progress Note ---
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 It is unclear when the graft thrombosed. He no longer has Doppler signals at his ankle and his foot is cool to cold. Patient will be taken back to the operating room as an emergency today for one final attempt at graft thrombectomy. Patient is aware that there are no further surgical options for reconstruction after this. Plan on anticoagulation for patient. - Subjective Interval history: Patient seen and ICU bed #12. Patient complains of numbness of the toes and pain in the surgical sites. On the left lower extremity. Vital Signs, Last 4 Hours Temp Pulse Resp BP Pulse Ox 03/27/19 17:00 84 18 110/94 98 03/27/19 16:00 82 20 106/85 99 03/27/19 15:18 97.8 F 03/27/19 14:00 80 19 125/59 92 - Physical Examination General: Present: Conversant Cardiac: Present: Reg Rate and Rhythm Neuro: Present: Alert and responsive Vascular: Present: Pulse, absent, Color/Temperature (Feet are cool to cold. Grayish discoloration on dorsum of left foot.), Surgical incisions (Dressings on surgical incisions from yesterday's operation.), Other (Patient no longer has Doppler signals at the left ankle. He previously had Doppler signals 2 immedia tely following his graft thrombectomy yesterday.) Abdomen: Present: Soft, Non-tender Results 03/27/19 04:20 03/27/19 04:20 Lab Results, Last 24 hours 03/27/19 03/27/19 04:20 04:20 WBC 7.0 Hgb 8.5 L D Hct 25.7 L Plt Count 131 L Sodium 141 Potassium 3.7 Chloride 108 H Carbon Dioxide 23 BUN 15 Creatinine 1.04 Glucose 81 Calcium 8.5 L Consult Discharge Plan - Plan Referrals: Keke Fernandez, VET ASSISTANT [Primary Care Provider] -
[2019-03-27] MEDS ORDERED: Heparin 1,000 UNITS/500 mL 500 ML ONE (17:43)
[2019-03-27] MEDS ORDERED: ceFAZolin 1,000 MG, Sodium Chloride IRRigation 1,000 ML IR ONE ×2 (18:00→21:25)
[2019-03-27] MEDS ORDERED: *HR* Vasopressin 20 UNIT/ML VIAL ONE (18:16)
[2019-03-27] MEDS ORDERED: *HR* Midazolam HCl 2 MG/2 ML VIAL ONE (18:25)
[2019-03-27] MEDS ORDERED: *HR* FentaNYL (PF) 100 MCG/2 ML VIAL ONE ×2 (18:25→19:29)
[2019-03-27] MEDS ORDERED: Dexamethasone 4 MG/ML VIAL ONE (18:25)
[2019-03-27] MEDS ORDERED: *HR* Heparin 5,000 UNIT/ML VIAL ONE ×2 (19:57)
--- NOTE | 2019-03-27 20:49 | Operative Note ---
Date of procedure: 03/27/19 Pre-op diagnosis: recurrent left leg graft thrombosis Post-op diagnosis: same Procedure: redo left leg bypass graft thrombectomy left iliac artery thrombectomy Complications: 0 Anesthesia: GETA Surgeon: Farhan Wynne Was there an events assistant present: No Estimated blood loss (cc): 450 Specimen: 0 Condition: stable Disposition: PACU Procedure in Detail: History Francisco Diaz is a 73-year-old white male who had undergone an extensive and difficult left lower extremity bypass graft thrombectomy yesterday. On rounds in the intensive care unit today he was found to have no Doppler signals at his foot whereas yesterday after surgery he had had 2 easily identifiable Doppler signals. Therefore his bypass graft is thrombosed and he was taken back to this operating room as an emergency. Procedure After informed consent was obtained the patient was taken to the operating room. General endotracheal anesthesia was established. The left lower extremity was sterilely prepped and draped. A timeout protocol was observed. The left below the knee popliteal artery incision was reopened. Dissection was carried down to the synthetic graft and the [id number] popliteal artery. As had been experienced yesterday the exposure of this area was very difficult and tedious. Eventually controls obtained of the [place] vessels on the graft. Intravenous heparin was administered. The area of the previous graftotomy was opened. Fresh thrombus was identified. This was removed and the patient demonstrated backbleeding from the [place] vessels. There was no forward bleeding from the graft. A 4-Citizen Of [place] 40 catheter was then inserted through the distal anastomosis and this extended down to the level of the foot. No thrombus was returned and the backbleeding was improved. This area was then flushed with heparinized s saud and reclamped. Attention was then directed to the graft itself. Using multiple Lul catheters including a 3-Citizen [place] and 4-Citizen [place] and 5-Citizen [place] the graft was thrombectomized. Fresh thrombus was removed but minimal arterial flow was achieved. Also upon advancing the catheter retrograde from the siojz-ovj-taws popliteal approach it was noted that the Lul catheters would not pass beyond the 50 cm yessica. This was unacceptable as the inflow was not adequately reestablished and so therefore this lead to a second incision proximally. The left groin incision was then reopened from yesterday's operation. Dissection was carried down to the origin of the femoral popliteal graft. The patient had undergone previous surgery around site institution we do not have all the information concerning this but there was a large patch over the left common femoral artery. However upon dissection of this area it was clear that there was no pulse in the common femoral artery as there was yesterday. The profunda femoris artery and the distal external iliac artery were dissected and controlled. A transverse arteriotomy was made over the patch on the left common femoral artery. This was proximal to the takeoff and proximal anastomosis of the femoral-popliteal graft. Upon opening this area both chronic and fresh thrombus was identified but there was no bleeding whatsoever. The proximal c lamp was removed and there is no antegrade bleeding. This area of the common femoral artery was then debrided all residual laminar clot. This was primarily [place] this material and old intimal hyperplasia type of tissue. A 5-Citizen Of [place] Lul catheter was then passed retrograde into the left external iliac artery. A number of passes of the catheter were conducted. A large amount of old chronic fibrillation is an scarlike tissue was removed. Eventually excellent pulsatile bleeding was finally achieved. The artery was then back flushed with heparinized saline and clamped. The femoral-popliteal bypass graft was then flushed again to ensure that there was no residual debris or material that it entered this structure. With this done the graftotomy over the common femoral artery was then closed using a running 6-0 Prolene suture. The clamp was removed from the profunda femoris artery and the femoral-popliteal bypass graft was clamped. Then the common femoral clamp was removed and pulsatile flow from the external iliac artery into the common femoral and profunda was achieved. The clamp on the femoral-popliteal graft was flashed and this demonstrated excellent pulsatile flow. The femoral-popliteal bypass graft clamp was reapplied. The graft was once again copiously irrigated with heparinized saline. The distal graftotomy at the jbtwc-kik-fyph popliteal area was then closed. After appropriate backbleeding and flushing the clamps removed distally and then the clamps were removed from the proximal aspect of the femoral- popliteal bypass. Excellent pulse was noted through the graft into the tibial peroneal trunk. Excellent multiphasic Doppler signals were identified over the graft and into the tibioperoneal trunk. Doppler signals were now once again identified at the posterior tibial, anterior tibial, and peroneal artery at the ankle. With this pulsatile flow reestablished into the left leg the wounds were irrigated. There was an closed in layers using absorbable suture. [place] were used to approximate the skin edges. Dry sterile dressings were applied. Due to the blood loss from yesterday's operation in the acute blood loss anemia present on laboratory values, and more blood loss today associated with this again extensive thrombectomy, 2 units of packed red blood cells were transfused intraoperatively. The patient was hemodynamically stable. He was able to be extubated at the conclusion of the operation. Capillary refill was improved to the left foot. He was then transported from the operating room to the intensive care unit in stable condition. The sponge count and needle counts were correct. There were no intraoperative complications.
[2019-03-27] MEDS ORDERED: Acetaminophen 325 MG TABLET PO PRN (21:25)
[2019-03-27] MEDS ORDERED: *HR* HYDROcodone/Acet 5/325 mg TABLET PO PRN (21:25)
[2019-03-27] MEDS ORDERED: Naloxone 0.4 MG/ML INJ IVP PRN ×2 (21:25)
[2019-03-27] MEDS ORDERED: traMADol 50 MG TABLET PO PRN (21:25)
[2019-03-27] MEDS ORDERED: *HR* Labetalol 20 MG/4 ML SYRINGE IVP PRN (21:25)
[2019-03-27] MEDS ORDERED: Ondansetron 4 MG/2 ML VIAL IVP PRN (21:25)
[2019-03-28] MEDS ORDERED: *HR* Heparin 5,000 UNIT/ML VIAL IVP PRN ×2 (00:01)
[2019-03-28] MEDS ORDERED: Heparin 25,000 UNIT/250 ML D5W 25,000 UNIT/250 ML IV.SOLN IVC SCH (00:01)
[2019-03-28 00:44] LABS: Basophils % 0.1 %; Hematocrit 30.3 % (37.5-50.1); Hemoglobin 10.3 g/dL (12.9-16.9); Immature Granulocytes % 0.5 % (0-4); Lymphocytes # 0.8 K/mcL (0.6-4.6); Lymphocytes % 6.2 %; Mean Corpuscular Volume 88.3 fL (83.0-100.0); Mean Platelet Volume 10.7 fL (9.4-12.4); Monocytes # 0.6 K/mcL (0.0-1.3); Monocytes % 5.1 %; Neutrophils # 10.9 K/mcL (1.6-8.9); Platelet Count 108 K/mcL (140-400); Red Blood Count 3.43 M/mcL (4.19-5.50); Red Cell Distribution Width 13.9 % (11.5-14.5); Segmented Neutrophils % 88.1 %; White Blood Count 12.4 K/mcL (4.3-11.1)
[2019-03-28 00:51] LABS: Heparin anti-factor XA UFH 0.34 IU/mL (0.30-0.70)
[2019-03-28 00:52] LABS: INR 1.3; Prothrombin Time 14.8 Seconds (9.4-12.1)
[2019-03-28 01:01] LABS: BUN/Creatinine Ratio 13 (6-26); Blood Urea Nitrogen 15 mg/dL (8-23); Calcium 8.5 mg/dL (8.6-10.3); Carbon Dioxide 24 mEq/L (23-29); Chloride 105 mEq/L (98-107); Glucose 146 mg/dL (70-105); Osmolality,Calculated 291 (280-300); Potassium 3.7 mEq/L (3.5-5.1); Sodium 139 mEq/L (136-145); eGFR For African Americans > 60 (> 60); eGFR For Non-African Americans 60 (> 60)
[2019-03-28] MEDS ORDERED: Vitamin B Complex/Vit C/Vit E 1 EACH TABLET PO SCH (09:00)
[2019-03-28] MEDS ORDERED: Gabapentin 300 MG CAPSULE PO SCH (09:00)
[2019-03-28] MEDS ORDERED: Multivit/Ca/Min/Fe/FA 1 TAB TABLET PO SCH (09:00)
[2019-03-28] MEDS ORDERED: Aspirin Enteric Coated 81 MG Tablet PO SCH (09:00)
[2019-03-28] MEDS ORDERED: Cholecalciferol (D-3) 1,000 UNIT (25MCG) TABLET PO SCH (09:00)
[2019-03-28] MEDS ORDERED: Ascorbic Acid 500 MG TABLET PO SCH (09:00)
--- NOTE | 2019-03-28 13:40 | Vascular/[facility] Progress Note ---
Date of Encounter: 03/28/19 Time of Encounter: 11:15 - Assessment and plan (1) PAD (peripheral artery disease) Current Visit: Yes Status: Chronic Patient is postoperative day #1 and day #2 following left lower extremity graft thrombectomies. He now has excellent perfusion of the left lower extremity with widely patent graft. My intention to place the patient anticoagulation is on hold due to the gross hematuria. Will ambulate patient today. Patient may be transferred to [address] [place] [address]. Leave Mcallister in position and push by mouth fluids. - Subjective Interval history: Patient seen and ICU bed #12. Patient is postoperative day #1 after redo left lower stomach graft thrombectomy and postoperative day #2 from his original graft thrombectomy. At his redo surgery last night he was found to have not only acute graft thrombosis but chronic occlusive material in the distal external iliac artery leading to the graft thrombosis. This was removed either directly or with Lul catheters. On today's visit the patient states the left foot is feeling warmer. He also notes swelling of the left foot. Earlier this morning I was called by the nursing staff as the patient developed gross hematuria. His factor X A was elevated as he was on a heparin drip which was started at midnight last night. The heparin drip was discontinued due to the hematuria. The patient has no previous history of hematuria. Vital Signs, Last 4 Hours Temp Pulse Resp BP Pulse Ox 03/28/19 13:00 81 16 105/55 99 03/28/19 12:00 80 16 122/78 96 03/28/19 11:49 97.8 F 03/28/19 11:26 87 03/28/19 11:00 79 14 100/63 95 03/28/19 10:00 87 19 98/57 98 - Physical Examination General: Present: Conversant, No Apparent Distress HEENT: Present: Atraumatic Neck: Absent: JVD Cardiac: Present: Reg Rate and Rhythm Lungs: Present: Normal Breath Sounds Neuro: Present: Alert and responsive, No focal deficits noted Vascular: Present: Normal capillary refill, Edema (The patient has mild to moderate edema of the left foot.), Color/Temperature (Left foot is now warm and pink. It has less than 2 second capillary refill. It demonstrates hyperreactive reperfusion effect.), Surgical incisions (Patient has had some oozing from his surgical incisions particular at the calf overnight.), Other (Patient has multiphasic Doppler signals 3 at the left ankle.) Skin: Present: No rashes noted on visualized skin Results 03/28/19 00:31 03/28/19 00:31 Lab Results, Last 24 hours 03/28/19 03/28/19 03/28/19 00:31 00:31 00:31 WBC 12.4 H D Hgb 10.3 L D Hct 30.3 L Plt Count 108 L INR 1.3 Sodium 139 Potassium 3.7 Chloride 105 Carbon Dioxide 24 BUN 15 Creatinine 1.19 Glucose 146 H Calcium 8.5 L Consult Discharge Plan - Plan Referrals: Keke Fernandez, INFORMATION TECHNOLOGY ASSOCIATE [Primary Care Provider] -
[2019-03-28] MEDS ORDERED: Ondansetron 4 MG/2 ML VIAL IVP PRN (14:12)
[2019-03-28] MEDS ORDERED: ceFAZolin 1,000 MG, Sodium Chloride IRRigation 1,000 ML IR ONE (14:12)
[2019-03-28] MEDS ORDERED: *HR* HYDROcodone/Acet 5/325 mg TABLET PO PRN (14:12)
[2019-03-28] MEDS ORDERED: Acetaminophen 325 MG TABLET PO PRN (14:12)
[2019-03-28] MEDS ORDERED: *HR* Labetalol 20 MG/4 ML SYRINGE IVP PRN (14:12)
[2019-03-28] MEDS ORDERED: Naloxone 0.4 MG/ML INJ IVP PRN (14:12)
[2019-03-28] MEDS: traMADol 50 MG TABLET PO PRN (16:18)
[2019-03-28] MEDS: Gabapentin 300 MG CAPSULE PO SCH (21:08)
[2019-03-29] MEDS: Gabapentin 300 MG CAPSULE PO SCH ×2 (08:08→21:48)
[2019-03-29] MEDS: Aspirin Enteric Coated 81 MG Tablet PO SCH (08:09)
[2019-03-29] MEDS: Cholecalciferol (D-3) 1,000 UNIT (25MCG) TABLET PO SCH (08:09)
[2019-03-29] MEDS: Vitamin B Complex/Vit C/Vit E 1 EACH TABLET PO SCH (08:09)
[2019-03-29] MEDS: Multivit/Ca/Min/Fe/FA 1 TAB TABLET PO SCH (08:09)
[2019-03-29] MEDS: Ascorbic Acid 500 MG TABLET PO SCH (08:10)
--- NOTE | 2019-03-29 08:36 | Vascular/[facility] Progress Note ---
Date of Encounter: 03/29/19 Time of Encounter: 07:30 - Assessment and plan (1) PAD (peripheral artery disease) Current Visit: Yes Status: Chronic Patient is postoperative day #2 and day #3 following left lower extremity graft thrombectomies. He now has excellent perfusion of the left lower extremity with widely patent graft. My intention to place the patient anticoagulation is on hold due to the gross hematuria and it is likely that we will not be able to offer this to the patient. We will focus on antiplatelet therapy. Ambulate patient today. Patient may be transferred to [address] [place] [address]. Remove Mcallister Possible discharge later today depending on patient's clinical course. - Subjective Interval history: Patient seen and ICU bed #12. Patient is postoperative day #2 after redo left lower extremity graft thrombectomy and postoperative day #3 from his original left lower extremity graft thrombectomy. On today's visit the patient states the left foot remains warm and pink. He also notes swelling of the left foot. The urine has returned to a clear collar. His morning labs have not yet been drawn. The patient has not been up walking yet. This will need to be accomplished today. Potential discharge later today Vital Signs, Last 4 Hours Pulse Resp 03/29/19 06:00 63 16 - Physical Examination General: Present: Conversant, No Apparent Distress HEENT: Present: Atraumatic Neck: Absent: JVD Cardiac: Present: Reg Rate and Rhythm Neuro: Present: Alert and responsive, No focal deficits noted, Cranial nerves grossly intact Vascular: Present: Normal capillary refill, Color/Temperature (Left foot remains warm and pink with reperfusion effect.) Results 03/28/19 00:31 03/28/19 00:31 Consult Discharge Plan - Plan Referrals: Keke Fernandez, INSURANCE CHECKER [Primary Care Provider] -
[2019-03-29 08:37] LABS: Hematocrit 23.5 % (37.5-50.1)
[2019-03-29 08:39] LABS: Hemoglobin 7.9 g/dL (12.9-16.9)
[2019-03-29 08:47] LABS: BUN/Creatinine Ratio 17 (6-26); Blood Urea Nitrogen 17 mg/dL (8-23); Calcium 8.1 mg/dL (8.6-10.3); Carbon Dioxide 24 mEq/L (23-29); Chloride 105 mEq/L (98-107); Glucose 127 mg/dL (70-105); Osmolality,Calculated 291 (280-300); Potassium 3.8 mEq/L (3.5-5.1); Sodium 139 mEq/L (136-145); eGFR For African Americans > 60 (> 60); eGFR For Non-African Americans > 60 (> 60)
[2019-03-30 02:06] LABS: Hematocrit 21.8 % (37.5-50.1); Hemoglobin 7.3 g/dL (12.9-16.9)
[2019-03-30 02:16] LABS: BUN/Creatinine Ratio 18 (6-26); Blood Urea Nitrogen 20 mg/dL (8-23); Calcium 8.4 mg/dL (8.6-10.3); Carbon Dioxide 22 mEq/L (23-29); Chloride 107 mEq/L (98-107); Glucose 109 mg/dL (70-105); Osmolality,Calculated 291 (280-300); Potassium 3.6 mEq/L (3.5-5.1); Sodium 139 mEq/L (136-145); eGFR For African Americans > 60 (> 60); eGFR For Non-African Americans > 60 (> 60)
[2019-03-30] MEDS: Gabapentin 300 MG CAPSULE PO SCH ×2 (09:41→20:06)
[2019-03-30] MEDS: Ascorbic Acid 500 MG TABLET PO SCH (09:42)
[2019-03-30] MEDS: Multivit/Ca/Min/Fe/FA 1 TAB TABLET PO SCH (09:42)
[2019-03-30] MEDS: Aspirin Enteric Coated 81 MG Tablet PO SCH (09:42)
[2019-03-30] MEDS: Vitamin B Complex/Vit C/Vit E 1 EACH TABLET PO SCH (09:42)
[2019-03-30] MEDS: Cholecalciferol (D-3) 1,000 UNIT (25MCG) TABLET PO SCH (09:42)
[2019-03-30] MEDS: traMADol 50 MG TABLET PO PRN (09:46)
--- NOTE | 2019-03-30 13:26 | Vascular/[facility] Progress Note ---
Date of Encounter: 03/30/19 Time of Encounter: 11:15 - Assessment and plan (1) PAD (peripheral artery disease) Current Visit: Yes Status: Chronic Patient is postoperative day #3 and day #4 following left lower extremity graft thrombectomies. He now has excellent perfusion of the left lower extremity with widely patent graft. My intention to place the patient anticoagulation is on hold due to the gross hematuria and it is likely that we will not be able to offer this to the patient. We will focus on antiplatelet therapy. Ambulate patient today. Transfuse 2 units of packed red blood cells today for hemoglobin of 7.3 Discharge in a.m when transportation has been secured. (2) Anemia due to acute blood loss Current Visit: Yes Status: Acute Acute on chronic anemia. Hemoglobin has decreased to 7.3 g. We will transfuse 2 units of packed blood cells today. The patient did receive 2 units of packed red blood cells during his second operation. Plan on discharge tomorrow chloe carreon - Subjective Interval history: Patient seen on [address] [place] [address] Patient is postoperative day #3 after redo left lower extremity graft thrombectomy and postoperative day #4 from his original left lower extremity graft thrombectomy. On today's visit the patient states the left foot remains warm and pink. He also notes swelling of the left foot. The urine is clear. His morning labs demonstrate a decrease of his hemoglobin to 7.3 g. Plan on transfusion today. The patient has been up walking and is doing well. Patient will be transfused 2 units of blood today. Transportation has not available for him to go home later today. Therefore plan on patient to be discharge in a.m. following morning meds and breakfast. Vital Signs, Last 4 Hours Temp Pulse Resp BP Pulse Ox 03/30/19 12:51 85 03/30/19 11:38 98.2 F 89 18 104/60 97 03/30/19 09:55 75 - Physical Examination General: Present: Conversant, No Apparent Distress HEENT: Present: Atraumatic Neck: Absent: JVD Cardiac: Present: Reg Rate and Rhythm Lungs: Present: Normal Breath Sounds Neuro: Present: Alert and responsive Vascular: Present: Color/Temperature (Left foot is warm and pink. Patient has excellent Doppler signals at left ankle. Patient does have swelling of left calf and foot as noted previously and is due to hyper reperfusion effect.), Surgical incisions (Surgical incisions on left lower extremity are clean and dry.) Results 03/30/19 01:16 03/30/19 01:16 Lab Results, Last 24 hours 03/30/19 03/30/19 01:16 01:16 Hgb 7.3 L Hct 21.8 L Sodium 139 Potassium 3.6 Chloride 107 Carbon Dioxide 22 L BUN 20 Creatinine 1.11 Glucose 109 H Calcium 8.4 L Consult Discharge Plan - Plan Referrals: Keke Fernandez CNP [Primary Care Provider] - 04/05/19 10:00 am Farhan Wynne MD [Partnered Physician] - 04/10/19 3:15 pm
--- NOTE | 2019-03-30 13:32 | Discharge Summary ---
Date of Encounter: 03/30/19 Time of Encounter: 11:30 - Discharge Diagnosis (1) PAD (peripheral artery disease) Priority: Primary Status: Chronic (2) Anemia due to acute blood loss Priority: Secondary Status: Acute - Hospital Course Hospital course: Mr. Lauren is a 73 year old male With known severe bilateral lower extremity occlusive disease. He has had previous procedures at outside institutions. He had undergone a left lower extremity bypass graft approximately 2 months ago here at [facility]. The graft had thrombosed. The patient was readmitted for left lower extremity graft thrombectomy. Patient had very competent procedure with marked inflammatory changes making the operation very difficult and finding previous grafts from the previous hospital complicating the reconstruction and thrombectomy. The patient had a successful thrombectomy with holiness of strong Doppler signals at the left ankle. Unfortunately on postoperative day #1 he was found to have thrombosed the graft yet again. 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 This was removed with holiness of excellent pulsatile flow. Excellent Doppler signals were then reestablished in the left foot. Patient did have postoperative acute blood loss anemia which was treated with intraoperative transfusion and postoperative transfusion on the floor. Patient was able to ambulate in the hallways with his cane. He was felt fit for discharge on March 31. The patient will be followed in the vascular surgery clinic in 2 weeks. Instructions regards to his diet and exercise and medications were reviewed with the patient prior to discharge. - Time Spent with Patient Total time spent providing and/or coordinating discharge services: - Discharge Medications Prescriptions: New Clopidogrel [Plavix] 75 mg PO DAILY #30 tablet Continued Vitamin B Complex [Balanced B-50] 1 each PO QAM Cholecalciferol (D-3) [Vitamin D] 1,000 unit PO QAM Ascorbic Acid [Vitamin C] 500 mg PO QAM Tramadol HCl [Ultram] 100 mg PO TID PRN PRN Reason: Pain Omeprazole [PriLOSEC] 20 mg PO QAM Multivitamin [Daily Multiple Vitamin] 1 each PO QAM Atorvastatin [Lipitor] 40 mg PO QAM Ubidecarenone [Coq10] 50 mg PO DAILY Tamsulosin HCl [Flomax] 0.4 mg PO QPM Cilostazol 50 mg PO BID Carvedilol [Coreg] 6.25 mg PO BIDWM Aspirin [Lo-Dose Aspirin EC] 81 mg PO QAM Gabapentin 600 mg PO BID Discontinued cephALEXin [Keflex] 500 mg PO QID Home Medications: Ascorbic Acid [Vitamin C] 500 mg PO QAM 01/11/19 [History] Aspirin [Lo-Dose Aspirin EC] 81 mg PO QAM 01/11/19 [History] Atorvastatin [Lipitor] 40 mg PO QAM 01/11/19 [History] Carvedilol [Coreg] 6.25 mg PO BIDWM 01/11/19 [History] Cholecalciferol (D-3) [Vitamin D] 1,000 unit PO QAM 01/11/19 [History] Cilostazol 50 mg PO BID 01/11/19 [History] Multivitamin [Daily Multiple Vitamin] 1 each PO QAM 01/11/19 [History] Omeprazole [PriLOSEC] 20 mg PO QAM 01/11/19 [History] Tamsulosin HCl [Flomax] 0.4 mg PO QPM 01/11/19 [History] Tramadol HCl [Ultram] 100 mg PO TID PRN 01/11/19 [History] Ubidecarenone [Coq10] 50 mg PO DAILY 01/11/19 [History] Vitamin B Complex [Balanced B-50] 1 each PO QAM 01/11/19 [History] Gabapentin 600 mg PO BID 02/05/19 [History] Clopidogrel [Plavix] 75 mg PO DAILY #30 tablet 03/30/19 [Rx] Allergies/Adverse Reactions: Allergy/AdvReac Type Severity Reaction Status Date / Time vancomycin Allergy See Verified 03/26/19 10:15 Comments Amoxicillin AdvReac Nausea Verified 03/26/19 10:15 Date of admission: 03/26/19 11:30 Primary care physician: Keke Fernandez CNP Consults: 03/29/19 09:37 Consult to Physical Therapy [CONS] Routine Comment: Evaluate, develop and implement POC Reason for Consult: unsteady gait Does patient have active BEDREST order?: No Is patient medically & hemodynamically stable?: Yes Patient assessed for mobility or mobilized this visit?: Yes 03/29/19 09:39 Consult to Occupational Therapy [CONS] Routine Comment: Evaluate, develop and implement POC Reason for Consult: unsteady gait Does patient have active BEDREST order?: No Is patient medically & hemodynamically stable?: Yes Patient assessed for mobility or mobilized this visit?: Yes Procedure(s) Performed: Left lower extremity graft thrombectomy with revision Redo graft thrombectomy Discharging clinician: Farhan Wynne Anticipated date of discharge: 03/31/19 Exam Vital Signs, Last 4 Hours Temp Pulse Resp BP Pulse Ox 03/30/19 12:51 85 03/30/19 11:38 98.2 F 89 18 104/60 97 03/30/19 09:55 75 General: Present: Conversant, No Apparent Distress HEENT: Present: Atraumatic Cardiac: Present: Reg Rate and Rhythm Lungs: Present: Normal Breath Sounds Neuro: Present: Alert and responsive, No focal deficits noted Vascular: Present: Normal capillary refill, Edema (Left calf and foot edema), Color/Temperature (Left foot is warm and pink), Surgical incisions (Surgical incisions are clean and dry) Skin: Present: No rashes noted on visualized skin - Patient Status Disposition: Home, Self-Care Condition: Good Functional capacity at discharge: uses cane/walker Overall status at discharge: patient is progressing back to baseline - Discharge Instructions Follow Up With: Keke Fernandez CNP [Primary Care Provider] - 04/05/19 10:00 am Farhan Wynne MD [Partnered Physician] - 04/10/19 3:15 pm Additional Instructions: keep surgical sites dry for 5 days after surgery remove surgical dressings on Monday place dry dressings on left calf wound on Monday resume usual home medications begin Plavix 75 mg orally every morning elevate left leg while sitting - Diet and Activity Activity: increase activity as tolerated Diet: low fat, low cholesterol
[2019-03-30] MEDS ORDERED: 0.9 % Sodium Chloride 250 ML ONE (15:01)
[2019-03-31 00:22] LABS: Hematocrit 29.2 % (37.5-50.1)
[2019-03-31 00:23] LABS: Hemoglobin 9.9 g/dL (12.9-16.9)
[2019-03-31 07:18] VITALS: BP 152/74
[2019-03-31] MEDS: Ascorbic Acid 500 MG TABLET PO SCH (09:35)
[2019-03-31] MEDS: traMADol 50 MG TABLET PO PRN (09:36)
[2019-03-31] MEDS: Gabapentin 300 MG CAPSULE PO SCH (09:36)
[2019-03-31] MEDS: Vitamin B Complex/Vit C/Vit E 1 EACH TABLET PO SCH (09:36)
[2019-03-31] MEDS: Cholecalciferol (D-3) 1,000 UNIT (25MCG) TABLET PO SCH (09:36)
[2019-03-31] MEDS: Aspirin Enteric Coated 81 MG Tablet PO SCH (09:36)
[2019-03-31] MEDS: Multivit/Ca/Min/Fe/FA 1 TAB TABLET PO SCH (09:36)
== END 2019-03-31 11:15 | disposition home or self-care (01) | DRG 271 ==
LOC: SAMDAY 09:53 → ICNU 11:30 → 2NNU 03-29 13:58
PROVIDERS: ADMIT Surgery Vascular Surgery; ATTEND Surgery Vascular Surgery